=== PATIENT | female | born 1960 | race Asian ===

== ENCOUNTER 2018-06-08 04:07 | Emergency (ER) | payer OTHER ==
[2018-06-08] MEDS ORDERED: diPHENhydraMINE IV* 50 MG/ML 1 ml VIAL (BENADRYL) IV ONE (04:23)
[2018-06-08] MEDS ORDERED: EPINEPHrine AMP 1 MG/ML IM ONE (04:23)
[2018-06-08] MEDS ORDERED: Famotidine IV* 10 MG/ML 2 ML (20 mg) IV SLOW PU ONE (04:23)
[2018-06-08] MEDS ORDERED: Ondansetron INJ* 2 MG/ML VIAL IV ONE (04:24)
--- NOTE | 2018-06-08 04:25 | ED ---
Allergic Reaction/Systemic - HPI Summary HPI Summary: The patient is a 58 y/o F presenting to [facility] c/o possible allergic reaction with an unknown source starting last night. For dinner, she had noddles, pork, and mushrooms, which she has had before. She has since started to have hives with redness and itching all over her body. She also has abdominal pain and nausea and vomiting. There has been no respiratory symptoms. She took a Benadryl to attempt to relieve the pain, but she was unable to keep the medication down as she started to vomit. She denies SOB. She has not had an allergic reaction before. She has hx of diabetes, which she takes PO medication for in the afternoons. - History of Current Complaint Chief Complaint: EDAllergicReaction Time Seen by Provider: 06/08/18 04:18 Hx Obtained From: Patient Onset/Duration: Sudden Onset, Still Present, Other - worsening since onset Timing: Constant Severity Initially: Mild Severity Currently: Moderate Pain Intensity: 0 Pain Scale Used: 0-10 Numeric Location: Diffuse - hives, redness, and itching all over body Character: Hives Aggravating Factor(s): Nothing Alleviating Factor(s): Nothing Associated Signs And Symptoms: Positive: Negative - SOB, Nausea, Vomiting, Other : - hives, redness, and itching all over body - Allergies/Home Medications Allergies/Adverse Reactions: Allergies Allergy/AdvReac Type Severity Reaction Status Date / Time No Known Allergies Allergy Verified 06/08/18 04:14 PMH/Surg Hx/FS Hx/Imm Hx Endocrine/Hematology History: Reports: Hx Diabetes Cardiovascular History: Denies: Hx Hypertension Opthamlomology History: Denies: Hx Legally Blind EENT History: Denies: Hx Deafness Infectious Disease History: No Infectious Disease History: Denies: Traveled Outside the [place] in Last 30 Days Review of Systems Negative: Shortness Of Breath Positive: Vomiting, Nausea Positive: Other - hives and redness all over body with itching All Other Systems Reviewed And Are Negative: Yes Physical Exam - Summary Physical Exam Summary: Appearance: Well-appearing, Well-nourished, lying in bed comfortably Skin: Warm, dry, widespread urticaria on trunk, face, and extremities Eyes: sclera anicteric, no conjunctival pallor ENT: mucous membranes moist, pharynx appears normal, no uvula edema Neck: Supple, nontender Respiratory: Clear to auscultation, no signs of respiratory distress Cardiovascular: Normal S1, S2. No murmurs. Normal distal pulses in tibial and radial bilaterally. Abdomen: Soft, nontender, normal active bowel sounds present Musculoskeletal: Normal, Strength/ROM Intact Neurological: A&Ox3, awake and alert, mentation is normal, speech is fluent and appropriate, tremulous Psychiatric: affect is normal, does not appear anxious or depressed Triage Information Reviewed: Yes Vital Signs On Initial Exam: Initial Vitals Temp Pulse Resp BP Pulse Ox 98 F 101 18 167/104 95 06/08/18 04:13 06/08/18 04:13 06/08/18 04:13 06/08/18 04:13 06/08/18 04:13 Vital Signs Reviewed: Yes Diagnostics - Vital Signs Vital Signs Temp Pulse Resp BP Pulse Ox 06/08/18 04:13 98 F 101 18 167/104 95 - Laboratory Lab Statement: Any lab studies that have been ordered have been reviewed, and results considered in the medical decision making process. Re-Evaluation - Re-Evaluation First Eval Re-Evaluation Time: 05:51 Change: Improved Allergic Reaction Course/Dx - Diagnoses Differential Diagnosis/HQI/PQRI: Positive: Anaphylaxis, Angioedema, Erythema Multiforme, Barajas-Johnsons Syndrome Provider Diagnoses: Anaphylaxis Discharge - Sign-Out/Discharge Documenting (check all that apply): Patient Departure - Pt will be discharged home. - Discharge Plan Condition: Improved Disposition: HOME Prescriptions: diPHENhydraMINE PO* [Benadryl PO 25 MG TAB*] 25 mg PO Q6H PRN #30 tab PRN Reason: Allergy Symptoms EPINEPHrine [Epipen 2-Ken] 0.3 mg IM ONCE PRN #1 inj PRN Reason: Allergy Symptoms Famotidine TAB* [Pepcid 20 MG TAB*] 20 mg PO BID #10 tab Ondansetron ODT TAB* [Zofran 4 MG Odt TAB*] 8 mg PO Q6H PRN #10 tab.odt PRN Reason: Nausea Patient Education Materials: Anaphylaxis (ED) Referrals: Marcin Owens MD [Primary Care Provider] - 1 Week - Billing Disposition and Condition Condition: IMPROVED Disposition: Home Attestations Scribe Attestation: This is modestodriss grewal for attending Dr. Lobito Chester MD. User Type: Provider with Scribe Provider Attestation: The documentation recorded by the scribe accurately reflects the service I personally performed and the decisions made by me.
[2018-06-08 06:05] VITALS: BP 127/69
== END 2018-06-08 05:59 | disposition home or self-care (01) ==
LOC: ED 04:07
DX: T78.2XXA Anaphylactic shock, unspecified, initial encounter (principal); L50.9 Urticaria, unspecified; R11.2 Nausea with vomiting, unspecified
CPT/HCPCS: 96374; 96375; 99283; J0171; J1200; J2405